=== PATIENT | female | born 1960 | race Caucasian/White ===

== ENCOUNTER 2016-07-22 00:21 | Emergency (ER) | payer MEDICARE ==
[~2016-07-22 00:21] MED LIST: ALEVE220 M1 PO; ALLEGRA ALLERG180 MG PO; ANTIVERT25 MG PO; B-COMPLEX PLUS1 TAB PO; CALCIUM 600 +1 EAC5 PO; CRANBERRY400 MG PO; ESTER-C500 M1 PO; FISH OIL 1,2001 CAP PO; GLUCOSAMINE SU500 MG PO; MELATONIN PO; MICONAZOLE 2% TOP; MIRALAX17 G1 PO; OMEPRAZOLE40 M2 PO; VITAMIN CODE PO; VITAMIN D31000 UNI3 PO
[2016-07-22] MEDS ORDERED: MOBIC7.5 M2 PO (01:06)
[2016-07-22] MEDS ORDERED: ULTRAM50 M1 PO (01:07)
[2016-07-22] MEDS ORDERED: OXYCODONE HCL5 M1 PO (01:07)
[2016-07-22] MEDS ORDERED: AZO PO (01:09)
[2016-07-22] MEDS ORDERED: ENALAPRIL MALEA20 M1 PO (01:16)
[2016-07-22] MEDS ORDERED: FLONASE ALLERG9.9 ML (01:16)
[2016-07-22] MEDS ORDERED: ALLEGRA ALLERG180 M1 PO (01:17)
[2016-07-22] MEDS ORDERED: VENTOLIN HFA18 G2 PO (01:17)
[2016-07-22] MEDS ORDERED: ATIVAN1 M2 PO (01:18)
[2016-07-22] MEDS ORDERED: CYCLOBENZAPRINE10 M1 PO (01:23)
[2016-07-22] MEDS ORDERED: CALCIUM600 M1 PO (01:24)
[2016-07-22] MEDS ORDERED: TYLENOL EXTRA500 M1 PO (01:25)
[2016-07-22 02:22] LABS: URINE BILIRUBIN MODERATE (NEG); URINE BLOOD SMALL (NEG); URINE GLUCOSE (UA) NEGATIVE (NEG); URINE KETONE NEGATIVE (NEG); URINE LEUKOCYTE ESTERASE POSITIVE (NEG); URINE NITRITE POSITIVE (NEG); URINE PROTEIN SMALL (NEG)
[2016-07-22 02:45] LABS: URINE APPEARANCE SL CLOUDY; URINE COLOR BROWN
[2016-07-22 02:47] LABS: URINE RBC 0-1 /[HPF] (0-5)
[2016-07-22 02:48] LABS: URINE BACTERIA 1+
[2016-07-22] MEDS ORDERED: BACTRIM DS TAB1 EAC2 PO (03:03)
[2016-07-22] MEDS ORDERED: ZOFRAN ODT4 MG PO (03:04)
[2016-07-22] MEDS ORDERED: MACROBID 100 M100 M1 PO (03:15)
== END 2016-07-22 03:32 ==
LOC: EDMED 00:21
PROVIDERS: Physician Assistant
DX: H11.32 Conjunctival hemorrhage, left eye (principal); N39.0 Urinary tract infection, site not specified; I10 Essential (primary) hypertension; K21.9 Gastro-esophageal reflux disease without esophagitis; Z79.899 Other long term (current) drug therapy; Z87.891 Personal history of nicotine dependence
CPT/HCPCS: P9612